=== PATIENT | male | born 1955 | race Caucasian/White ===

== ENCOUNTER 2019-04-06 06:27 | Inpatient (IN) | payer MEDICARE, OTHER ==
[2019-04-06 06:52] LABS: ADD MAN DIFF? NO
[2019-04-06 06:56] LABS: WHITE BLOOD COUNT 9.4 10^3/ul (4.8-10.8)
[2019-04-06 06:56] LABS: BASOPHIL # 0.1 10^3/ul (0.0-0.1); BASOPHILS % 0.9 % (0.0-2.0); EOSINOPHILS # 0.2 10^3/ul (0.0-0.5); EOSINOPHILS % 2.2 % (0.0-7.0); HEMATOCRIT 45.3 % (42.0-52.0); HEMOGLOBIN 15.2 g/dl (14.0-18.0); LYMPHOCYTES # 1.4 10^3/ul (0.8-2.9); LYMPHOCYTES % 14.5 % (15.0-51.0); MEAN CORPUSCULAR HEMOGLOBIN 27.8 pg (29.0-33.0); MEAN CORPUSCULAR HGB CONC 33.6 g/dl (32.0-37.0); MEAN PLATELET VOLUME 9.3 fl (7.4-10.4); MONOCYTE # 0.6 10^3/ul (0.3-0.9); MONOCYTES % 6.5 % (0.0-11.0); NEUTROPHIL # 7.1 10^3/ul (1.6-7.5); NEUTROPHILS % 75.3 % (39.0-77.0); PLATELET COUNT 426 10^3/UL (140-415); RED BLOOD COUNT 5.46 10^6/ul (4.70-6.10); RED CELL DISTRIBUTION WIDTH 12.6 % (11.5-14.5)
[2019-04-06] MEDS ORDERED: IOHEXOL 100 ML (07:04)
[2019-04-06] MEDS ORDERED: SOD CHLORIDE 0.9% 100 ML (07:04)
[2019-04-06 07:13] LABS: INR 0.98; PROTIME 13.1 Sec (11.9-14.9)
[2019-04-06 07:14] LABS: ANION GAP 10 (5-13); BLOOD UREA NITROGEN 16 mg/dl (7-20); CALCIUM 9.1 mg/dl (8.4-10.2); CARBON DIOXIDE 27 mmol/L (21-31); CHLORIDE 102 mmol/L (97-110); CHOL/HDL RATIO 5.8 RATIO; CHOLESTEROL 212 mg/dl (100-200); CREATINE KINASE 55 IU/L (23-200); CREATININE 0.62 mg/dl (0.61-1.24); Estimated GFR > 60 mL/min (>60); GLUCOSE 294 mg/dl (70-220); HDL CHOLESTEROL 36 mg/dl (30-78); LDL CHOLESTEROL,CALCULATED 149 mg/dl; PARTIAL THROMBOPLASTIN TIME 28.1 Sec (23.0-35.0); POTASSIUM 3.5 mmol/L (3.5-5.1); SODIUM 139 mmol/L (135-144); TRIGLYCERIDES 133 mg/dl (0-149)
[2019-04-06 07:24] LABS: ETHANOL < 10.0 mg/dl (0-0)
[2019-04-06 07:24] LABS: HEMOGLOBIN A1C 10.7 % (0-5.9)
[2019-04-06 07:25] LABS: CK INDEX 0.7; TROPONIN-I < 0.012 ng/ml (0.000-0.120)
[2019-04-06] MEDS ORDERED: ONDANSETRON 4 MG INJ IV ×2 (08:30→15:30)
[2019-04-06] MEDS ORDERED: ACETAMINOPHEN 325 MG TAB PO ×2 (08:30→15:30)
[2019-04-06] MEDS: ASPIRIN 325 MG TAB PO (09:12)
[2019-04-06 15:16] LABS: ADD UMIC YES; UR ASCORBIC ACID NEGATIVE (NEGATIVE); UR BILIRUBIN (Dip) NEGATIVE (NEGATIVE); UR BLOOD (Dip) 1+ mg/dL (NEGATIVE); UR CLARITY CLEAR (CLEAR); UR COLOR YELLOW (YELLOW); UR GLUCOSE (Dip) 3+ mg/dL (NEGATIVE); UR KETONES (Dip) 1+ mg/dL (NEGATIVE); UR LEUKOCYTE ESTERASE (Dip) NEGATIVE Leu/ul (NEGATIVE); UR NITRITE (Dip) NEGATIVE (NEGATIVE); UR RBC 5 /HPF (0-5); UR SQUAMOUS EPITHELIAL CELL FEW /HPF (FEW); UR TOTAL PROTEIN (Dip) NEGATIVE (NEGATIVE); UR UROBILINOGEN (Dip) NEGATIVE (NEGATIVE); UR WBC 1 /HPF (0-5)
[2019-04-06] MEDS ORDERED: DOCUSATE SODIUM 100 MG CAP PO (15:30)
[2019-04-06] MEDS ORDERED: NACL 0.9% 3 ML SYG IV (15:30)
[2019-04-06] MEDS: DEXTROSE 5%-0.45% NACL 1,000 ML IV (15:30)
[2019-04-06 15:33] LABS: AMPHETAMINE/METHAMPHETAMINE Negative (NEGATIVE); BARBITURATES Negative (NEGATIVE); BENZODIAZEPINES Negative (NEGATIVE); CANNABINOIDS Positive (NEGATIVE); COCAINE Negative (NEGATIVE); OPIATES Negative (NEGATIVE)
[2019-04-06] MEDS ORDERED: GLUCOSE GEL 15 GRAM TUBE BUCCAL (16:00)
[2019-04-06] MEDS ORDERED: GLUCAGON 1 MG INJ IM (16:00)
[2019-04-06] MEDS ORDERED: DEXTROSE 50% 50 ML SYRINGE IV ×2 (16:00)
[2019-04-06] MEDS ORDERED: GLUCOSE GEL 15 GRAM TUBE PO ×2 (16:00)
[2019-04-06] MEDS: INSULIN ASPART [NOVOLOG] 3 ML PEN SC ×3 (18:00→21:00)
[2019-04-06] MEDS: INSULIN GLARGINE [LANTus] (100 UNITS/ML) SYG SC (20:14)
[2019-04-06] MEDS: ATORVASTATIN 40 MG TAB PO (21:00)
[2019-04-07] MEDS: ACCU-CHEK XX (02:08)
[2019-04-07] MEDS: PANTOPRAZOLE (EC) 40 MG TAB PO (05:30)
[2019-04-07 06:43] LABS: ADD MAN DIFF? NO
[2019-04-07 06:55] LABS: BASOPHIL # 0.1 10^3/ul (0.0-0.1); BASOPHILS % 0.5 % (0.0-2.0); EOSINOPHILS # 0.3 10^3/ul (0.0-0.5); EOSINOPHILS % 3.3 % (0.0-7.0); HEMATOCRIT 45.5 % (42.0-52.0); HEMOGLOBIN 15.7 g/dl (14.0-18.0); LYMPHOCYTES # 2.1 10^3/ul (0.8-2.9); LYMPHOCYTES % 23.5 % (15.0-51.0); MEAN CORPUSCULAR HEMOGLOBIN 28.3 pg (29.0-33.0); MEAN CORPUSCULAR HGB CONC 34.5 g/dl (32.0-37.0); MEAN PLATELET VOLUME 9.4 fl (7.4-10.4); MONOCYTE # 0.7 10^3/ul (0.3-0.9); MONOCYTES % 7.7 % (0.0-11.0); NEUTROPHIL # 5.9 10^3/ul (1.6-7.5); NEUTROPHILS % 64.6 % (39.0-77.0); PLATELET COUNT 440 10^3/UL (140-415); RED BLOOD COUNT 5.55 10^6/ul (4.70-6.10); RED CELL DISTRIBUTION WIDTH 12.3 % (11.5-14.5)
[2019-04-07 06:55] LABS: WHITE BLOOD COUNT 9.1 10^3/ul (4.8-10.8)
[2019-04-07 07:04] LABS: ANION GAP 9 (5-13); BLOOD UREA NITROGEN 18 mg/dl (7-20); CALCIUM 9.1 mg/dl (8.4-10.2); CARBON DIOXIDE 27 mmol/L (21-31); CHLORIDE 103 mmol/L (97-110); CREATININE 0.62 mg/dl (0.61-1.24); Estimated GFR > 60 mL/min (>60); GLUCOSE 230 mg/dl (70-220); MAGNESIUM 1.9 mg/dl (1.7-2.5); PHOSPHORUS 3.2 mg/dl (2.5-4.9); POTASSIUM 3.4 mmol/L (3.5-5.1); SODIUM 139 mmol/L (135-144)
[2019-04-07] MEDS: ASPIRIN (EC) 81 MG TAB PO (10:18)
[2019-04-07] MEDS: AMLODIPINE 5 MG TAB PO (10:18)
[2019-04-07] MEDS: INSULIN ASPART [NOVOLOG] 3 ML PEN SC ×7 (10:29→20:10)
[2019-04-07] MEDS: DEXTROSE 5%-0.45% NACL 1,000 ML IV (15:18)
[2019-04-07] MEDS: POTASSIUM CHLORIDE (SR) 20 MEQ TAB PO (15:54)
[2019-04-07] MEDS: ATORVASTATIN 40 MG TAB PO (20:10)
[2019-04-07] MEDS: INSULIN GLARGINE [LANTus] (100 UNITS/ML) SYG SC (20:18)
[2019-04-08] MEDS: ACCU-CHEK XX (02:00)
[2019-04-08] MEDS: PANTOPRAZOLE (EC) 40 MG TAB PO (05:48)
[2019-04-08] MEDS: INSULIN ASPART [NOVOLOG] 3 ML PEN SC ×7 (07:47→20:59)
[2019-04-08] MEDS: POTASSIUM CHLORIDE 20 MEQ POWDER FOR ORAL SOLN PO (10:34)
[2019-04-08] MEDS: AMLODIPINE 5 MG TAB PO (10:35)
[2019-04-08] MEDS: DEXTROSE 5%-0.45% NACL 1,000 ML IV (15:30)
[2019-04-08] MEDS: metFORMIN 500 MG TAB PO (17:22)
[2019-04-08] MEDS: ATORVASTATIN 40 MG TAB PO (20:54)
[2019-04-08] MEDS: INSULIN GLARGINE [LANTus] (100 UNITS/ML) SYG SC (22:48)
[2019-04-09] MEDS: ACCU-CHEK XX (02:00)
[2019-04-09] MEDS: PANTOPRAZOLE (EC) 40 MG TAB PO (06:26)
[2019-04-09] MEDS: INSULIN ASPART [NOVOLOG] 3 ML PEN SC ×6 (08:11→17:45)
[2019-04-09] MEDS: metFORMIN 500 MG TAB PO ×2 (08:13→17:42)
[2019-04-09] MEDS: ASPIRIN 81 MG TAB PO (08:13)
[2019-04-09] MEDS: AMLODIPINE 5 MG TAB PO (08:14)
[2019-04-09] MEDS ORDERED: ASPIRIN (EC) 325 MG TAB PO (09:00)
[2019-04-09] MEDS: DEXTROSE 5%-0.45% NACL 1,000 ML IV (12:06)
== END 2019-04-09 18:33 | disposition home or self-care (01) | DRG 66 ==
LOC: E/R 06:27 → 6WM 08:22
PROVIDERS: Internal Medicine
DX: I63.9 Cerebral infarction, unspecified (principal); G83.24 Monoplegia of upper limb affecting left nondominant side; I10 Essential (primary) hypertension; E78.5 Hyperlipidemia, unspecified; I69.322 Dysarthria following cerebral infarction; E11.65 Type 2 diabetes mellitus with hyperglycemia; E11.51 Type 2 diabetes mellitus with diabetic peripheral angiopathy without gangrene; F12.90 Cannabis use, unspecified, uncomplicated; Z59.0 Homelessness; Z91.14 Patient's other noncompliance with medication regimen; Z89.612 Acquired absence of left leg above knee
CPT/HCPCS: 36415; 70450; 70496; 70498; 70551; 71045; 80048; 80061; 80307; 81001; 82550; 82553; 82962; 83036; 83735; 84100; 84484; 85025; 85610; 85730; 92526; 92610; 93005; 93306; 97162; 99285-25

== ENCOUNTER 2019-04-24 08:50 | Emergency (ER) | payer MEDICARE, OTHER ==
[2019-04-24] MEDS: CEFTRIAXONE 250 MG INJ IM (09:56)
[2019-04-24] MEDS: AZITHROMYCIN 500 MG TAB PO (09:56)
[2019-04-24] MEDS: LIDOCAINE 1% (MPF) 5 ML VIAL INFIL (09:56)
[2019-04-24 09:57] LABS: URINE PH (Dip) POC 5.5 (5.0-8.5)
[2019-04-24 09:57] LABS: URINE BLOOD (Dip) POC 2+ (NEGATIVE); URINE KETONES (Dip) POC Trace (NEGATIVE); URINE LEUKOCYTE EST (Dip) POC Negative (NEGATIVE); URINE NITRITE (Dip) POC Negative (NEGATIVE); URINE TOTAL PROTEIN POC 1+ (NEGATIVE)
[2019-04-29 18:55] LABS: URINE BLOOD (Dip) POC 2+ (NEGATIVE); URINE KETONES (Dip) POC Trace (NEGATIVE); URINE LEUKOCYTE EST (Dip) POC Negative (NEGATIVE); URINE NITRITE (Dip) POC Negative (NEGATIVE); URINE TOTAL PROTEIN POC 1+ (NEGATIVE)
[2019-04-29 18:55] LABS: URINE PH (Dip) POC 5.5 (5.0-8.5)
== END 2019-04-24 10:41 | disposition home or self-care (01) ==
LOC: FTE 08:50
DX: R21 Rash and other nonspecific skin eruption (principal); Z86.73 Personal history of transient ischemic attack (TIA), and cerebral infarction without residual deficits; Z79.82 Long term (current) use of aspirin; Z79.84 Long term (current) use of oral hypoglycemic drugs
CPT/HCPCS: 81003; 96372; 99284-25